=== PATIENT | male | born 1980 | race Caucasian/White ===

== ENCOUNTER 2023-01-20 19:18 | Emergency (ER) | payer MEDICAID, MEDICARE ==
[2023-01-20] MEDS ORDERED: Sodium Chloride 0.9% 1,000 ML IV SCH ×2 (19:45→20:45)
[2023-01-20 19:50] LABS: BASOPHILS PERCENT AUTO 1.2 % (0.1-1.3); EOSINOPHILS ABSOLUTE AUTO 0.37 K/uL (0.00-0.40); EOSINOPHILS PERCENT AUTO 4.3 % (0.0-5.4); HEMATOCRIT 29.4 % (38.4-49.7); HEMOGLOBIN 9.8 g/dL (12.9-16.9); IMMATURE GRAN ABSOLUTE AUTO 0.08 K/uL (0.00-0.23); IMMATURE GRAN PERCENT AUTO 0.9 % (0.0-0.7); LYMPHOCYTES ABSOLUTE AUTO 1.64 K/uL (0.8-3.3); MEAN CORPUSCULAR HEMOGLOBIN 35.8 pg (31.6-35.5); MEAN CORPUSCULAR HGB CONC 33.3 g/dL (31.6-35.5); MEAN CORPUSCULAR VOLUME 107.3 fL (81.4-99.0); MONOCYTES ABSOLUTE AUTO 0.93 K/uL (0.20-0.90); MONOCYTES PERCENT AUTO 10.8 % (3.3-12.6); NEUTROPHILS ABSOLUTE AUTO 5.49 K/uL (1.0-7.6); NEUTROPHILS PERCENT AUTO 63.8 % (40.0-78.1); PLATELET COUNT,PLT 281 K/uL (130-375); RED BLOOD CELL COUNT 2.74 M/uL (4.14-5.76); WHITE BLOOD CELL COUNT,WBC 8.6 K/uL (3.2-11.0)
[2023-01-20 20:07] LABS: A/G RATIO 1.2 (1.2-2.2); ALANINE AMINOTRANSFERASE,ALT 8 U/L (12-78); ALKALINE PHOSPHATASE 113 U/L (46-116); ASPARTATE AMNIOTRANSFERASE,AST 38 U/L (15-37); BILIRUBIN TOTAL 0.5 mg/dL (0.2-1.0); BLOOD UREA NITROGEN,BUN 28 mg/dL (7-18); CALCIUM 9.3 mg/dL (8.5-10.1); CARBON DIOXIDE,CO2 26 mmol/L (21-32); CHLORIDE,CL 96 mmol/L (100-108); CREATININE 1.5 mg/dL (0.8-1.3); ESTIMATED GFR 60 mL/min (>60); GLUCOSE RANDOM 109 mg/dL (74-106); POTASSIUM,K 3.8 mmol/L (3.6-5.2); PROTEIN TOTAL,TP 7.3 g/dL (6.4-8.2); SODIUM,NA 138 mmol/L (140-148)
[2023-01-20 20:08] LABS: ANION GAP 19.8 mmol/L (5.0-14.0)
[2023-01-20 20:40] LABS: CORONAVIRUS COVID-19 NAA NEGATIVE (NEGATIVE); INFLUENZA A NAA NEGATIVE (NEGATIVE); INFLUENZA B NAA NEGATIVE (NEGATIVE); RESPIRATORY SYNCYTIAL VIR NAA NEGATIVE (NEGATIVE)
[2023-01-20 22:19] LABS: ANION GAP 15.4 mmol/L (5.0-14.0); CALCIUM 8.5 mg/dL (8.5-10.1); CREATININE 1.2 mg/dL (0.8-1.3); EST CRCL DRUG DOSING (CG) 78.38 mL/min; POTASSIUM,K 3.9 mmol/L (3.6-5.2)
== END 2023-01-20 22:44 | disposition home or self-care (01) ==
LOC: JP.ED 19:18
DX: E86.0 Dehydration (principal); K52.9 Noninfective gastroenteritis and colitis, unspecified; F10.929 Alcohol use, unspecified with intoxication, unspecified; Y90.6 Blood alcohol level of 120-199 mg/100 ml; Z20.822 Contact with and (suspected) exposure to COVID-19
CPT/HCPCS: 0241U; 36415; 80048; 80053; 80307; 83605; 85025; 96360; 96361; 99284; J7030